=== PATIENT | male | born 2000 | race Two or more races ===

== ENCOUNTER 2020-06-19 09:56 | Outpatient (REF) | payer OTHER, SELFPAY ==
[2020-06-19 10:36] LABS: COVID-19 Test Negative (Negative); IDNOW Serial# 55D5AD1C
== END 2020-06-19 09:57 | disposition home or self-care (01) ==
LOC: HO.EMPCOV 09:56
PROVIDERS: Visit Provider Internal Medicine
DX: Z20.828 Contact with and (suspected) exposure to other viral communicable diseases (principal)
CPT/HCPCS: 87635; C9803